=== PATIENT | male | born 1960 ===

== ENCOUNTER 2017-10-16 06:30 | Day surgery (SDC) | payer OTHER | END 2017-10-16 20:45 | disposition home or self-care (01) | LOC: CIR.AMB 06:30 | DX: M24.522 Contracture, left elbow (principal) ==

== ENCOUNTER 2018-06-18 05:52 | Inpatient (IN) | payer OTHER ==
[~2018-06-18] VITALS: Ht 177.8 cm; Wt 76.2 kg
[~2018-06-18 05:52] MED LIST: AMILODIPINE PO; ATORVASTATIN CA40 MG PO; COZAAR50 MG PO; METFORMIN HCL500 MG PO; OXYCODON-ACETA1 EACH PO; PERCOCET 10-321 EACH PO; TAMS0.4C PO
[2018-06-19] MEDS ORDERED: AMLODIPINE BESYL5 MG PO (08:18)
[2018-06-19] MEDS ORDERED: OXYC1TAB9 PO (08:22)
[2018-06-19] MEDS ORDERED: LOSARTAN-HCTZ1 EAC2 PO (08:31)
== END 2018-06-20 13:44 | disposition home or self-care (01) | DRG 512 ==
LOC: CIR.AMB 05:52 → SURG 17:03 → O/R 17:03 → SURG 17:06
PROVIDERS: ADMIT Orthopaedic Surgery Hand Surgery
PROC: 01S40ZZ Reposition Ulnar Nerve, Open Approach (ICD-10-PCS; 2018-06-18)
PROC: 0RBM0ZZ Excision of Left Elbow Joint, Open Approach (ICD-10-PCS; principal; 2018-06-18 07:00)
DX: M24.522 Contracture, left elbow (principal); I10 Essential (primary) hypertension; E11.9 Type 2 diabetes mellitus without complications; Z79.84 Long term (current) use of oral hypoglycemic drugs; M25.822 Other specified joint disorders, left elbow; G56.22 Lesion of ulnar nerve, left upper limb

== ENCOUNTER 2018-11-12 05:07 | Day surgery (SDC) | payer OTHER ==
[~2018-11-12 05:07] MED LIST changes: +AMLODIPINE BESYL5 MG PO; +LOSARTAN-HCTZ1 EAC2 PO; +OXYC1TAB9 PO
== END 2018-11-12 11:25 | disposition home or self-care (01) ==
LOC: CIR.AMB 05:07
DX: M24.522 Contracture, left elbow (principal); M24.622 Ankylosis, left elbow

== ENCOUNTER 2019-03-18 06:02 | Day surgery (SDC) | payer OTHER ==
[~2019-03-18 06:02] MED LIST changes: +ACID CONTROL150 MG PO
== END 2019-03-18 14:49 | disposition home or self-care (01) ==
LOC: CIR.AMB 06:02 → ADM 08:30 → CIR.AMB 08:30
DX: M66.822 Spontaneous rupture of other tendons, left upper arm (principal)

== ENCOUNTER 2019-11-11 06:03 | Day surgery (SDC) | payer OTHER ==
[~2019-11-11 06:03] MED LIST changes: +OMEPRAZ PO
== END 2019-11-11 16:10 | disposition home or self-care (01) ==
LOC: CIR.AMB 06:03
PROVIDERS: ATTEND Orthopaedic Surgery Hand Surgery
DX: S46.312A Strain of muscle, fascia and tendon of triceps, left arm, initial encounter (principal); M24.622 Ankylosis, left elbow; Z20.828 Contact with and (suspected) exposure to other viral communicable diseases